=== PATIENT | female | born 1985 | race Caucasian/White ===

== ENCOUNTER 2017-09-04 08:00 | Outpatient (CLI) | payer OTHER | END 2017-09-04 08:01 | disposition home or self-care (01) | LOC: LAB.WCP 08:00 | PROVIDERS: ATTEND Family Medicine | DX: N39.0 Urinary tract infection, site not specified (principal) | CPT/HCPCS: 87086 ==

== ENCOUNTER 2020-05-02 16:17 | Outpatient (CLI) | payer BC ==
--- NOTE | 2020-05-02 18:59 | MRI Report ---
PROCEDURE: Shoulder RT W/O INDICATIONS: RT SHOULDER PAIN TECHNIQUE: Noncontrast oblique coronal T2 fast spin echo with fat saturation, oblique sagittal T1 spin echo and T2 fast spin echo with fat saturation, axial T1 spin echo and T2 fast spin echo with fat saturation t hrough the shoulder. COMPARISON: None. FINDINGS: Image quality: There is mild motion artifact. Rotator cuff: There is mild tendinopathy of the supraspinatus and infraspinatus with foci of magnetic susceptibility artifact distally compatible with calcific tendinitis. The subscapularis and teres mi nor appear intact. No rotator cuff muscle atrophy on sagittal images. Bones and bursae: No bone marrow contusions or fractures. There is moderate acromioclavicular joint degeneration. The acromion demonstrates conventional anatomy, without an os acromiale. A small amoun t of subacromial/subdeltoid bursal fluid is present. Capsule and soft tissues: In the absence of intra-articular contrast, the labrum and glenohumeral li gaments appear intact. The long head of the biceps tendon demonstrates normal location and morpholog y. The rotator interval appears normal, without fibrosis. The coracohumeral ligament is normal in t hickness. IMPRESSION: 1. Calcific tendinitis of the superior cuff distally with mild tendinopathy. No discrete rotator cuff tear. 2. Moderate acromioclavicular joint degeneration with mild subacromial/subdeltoid bursitis. Reviewed by: Juan Eid MD on 05/02/2020 5:58 PM [facility] Approved by: Juan Eid MD on 05/02/2020 5:58 PM [facility] Station ID: [id number]
== END 2020-05-02 16:18 | disposition home or self-care (01) ==
LOC: DI 16:17
PROVIDERS: ATTEND Physician Assistant
DX: M75.31 Calcific tendinitis of right shoulder (principal); M19.011 Primary osteoarthritis, right shoulder; M75.51 Bursitis of right shoulder

== ENCOUNTER 2020-07-12 07:26 | Outpatient (CLI) | payer BC ==
--- NOTE | 2020-07-12 12:27 | XRAY Report ---
PROCEDURE: Shoulder 3 View RT INDICATIONS: RIGHT SHOULDER PAIN TECHNIQUE: 4 views of the shoulder were acquired. COMPARISON: MR right shoulder 05/02/2020 FINDINGS: Bones: No fractures or dislocations. No suspicious bony lesions. Visualized ribs appear intact. Soft tissues: There are superior lateral joint space/bursal calcifications identified at the lateral right shoulder, amorphous in appearance, with etiology likely calcific bursitis by position and appea robinson. IMPRESSION: Moderate calcific bursitis lateral right shoulder region, no trauma found. Reviewed by: Blanco Stratton MD on 07/12/2020 12:25 PM PST Approved by: Blanco Stratton MD on 07/12/2020 12:25 PM PST Station ID: [id number]
== END 2020-07-12 23:59 | disposition home or self-care (01) ==
LOC: DI.N 07:26
PROVIDERS: ATTEND Physician Assistant
DX: M75.51 Bursitis of right shoulder (principal)

== ENCOUNTER 2020-12-26 14:59 | Outpatient (CLI) | payer BC ==
[2020-12-26 15:31] LABS: ALBUMIN 4.7 g/dL (3.2-5.5); ALBUMIN/GLOBULIN RATIO 1.5 (1.0-2.2); BILIRUBIN,TOTAL 0.5 mg/dL (0.2-1.0); CALCIUM 9.4 mg/dL (8.5-10.3); CREATININE 0.9 mg/dL (0.4-1.0); POTASSIUM 3.8 mmol/L (3.5-5.0); TOTAL PROTEIN 7.8 g/dL (6.7-8.2)
== END 2020-12-26 15:00 | disposition home or self-care (01) ==
LOC: LAB 14:59
PROVIDERS: ATTEND Orthopaedic Surgery
DX: M75.31 Calcific tendinitis of right shoulder (principal)
CPT/HCPCS: 36415; 80053

== ENCOUNTER 2020-12-28 15:04 | Outpatient (CLI) | payer BC | END 2020-12-28 15:05 | disposition home or self-care (01) | LOC: LAB 15:04 | PROVIDERS: ATTEND Orthopaedic Surgery | DX: Z01.812 Encounter for preprocedural laboratory examination (principal); Z20.822 Contact with and (suspected) exposure to COVID-19 ==

== ENCOUNTER 2021-01-02 10:17 | Day surgery (SDC) | payer BC ==
[~2021-01-02 10:17] MED LIST: ACETAMINOPHEN 1,000 MG/100 ML 100 ML IV ONE; CELECOXIB 100 MG CAPSULE PO ONE; EPINEPHrine 1 MG/ML AMP ONE; GABAPENTIN 400 MG CAPSULE ONE
[2021-01-02] MEDS ORDERED: LACTATED RINGERS 1,000 ML IV ONE ×2 (10:22→13:55)
[2021-01-02 10:42] LABS: HCG UR QUAL NEGATIVE
--- NOTE | 2021-01-02 10:55 | ANESTHESIA ---
Pre-Anesthesia VS, & Labs - Diagnosis right shoulder calcific tendonitis - Procedure right shoulder arthroscopy with debridement Vital Signs: Temp Pulse Resp BP Pulse Ox 36.2 C L 74 18 130/72 100 01/02/21 10:36 01/02/21 10:36 01/02/21 10:36 01/02/21 10:36 01/02/21 10:36 Height: 5 ft 5 in Weight (kg): 79 kg Body Mass Index: 29.0 BMI Classification: Overweight - NPO >8 hours - Is Patient ?: No - Lab Results Lab results reviewed: Yes Home Medications and Allergies Home Medications: Ambulatory Orders Acyclovir 400 mg PO BID PRN 12/31/20 Cetirizine [ZyrTEC] 10 mg PO DAILY 12/31/20 Fluticasone [Flonase] 1 sprays SHANEL BID PRN 12/31/20 Piroxicam [Feldene] 10 mg PO BID 12/31/20 Acyclovir 400 mg PO BID PRN 12/31/20 Cetirizine [ZyrTEC] 10 mg PO DAILY 12/31/20 Fluticasone [Flonase] 1 sprays SHANEL BID PRN 12/31/20 Piroxicam [Feldene] 10 mg PO BID 12/31/20 Allergies/Adverse Reactions: Allergies Allergy/AdvReac Type Severity Reaction Status Date / Time No Known Drug Allergies Allergy Verified 01/02/21 10:46 Anes History & Medical History - Anesthetic History Anesthesia Complications: reports: No previous complications Family history of Anesthesia Complications: Denies Family history of Malignant Hyperthermia: Denies - Medical History Cardiovascular: reports: None Pulmonary: reports: None Gastrointestinal: reports: None Urinary: reports: None Neuro: reports: None, Other (right hand numbness and tingling.) Musculoskeletal: reports: None Endocrine/Autoimmune: reports: None Skin: reports: None Psychosocial: reports: Anxiety, Alcohol, Cannabis History of Cancer?: No - Surgical History Gynecologic: reports: LEEP (Cervical surgery) Exam General: Alert, Oriented x3, Cooperative, No acute distress Dental: WNL Mouth Openin Fingerbreadth Neck Mobility: Normal Mallampati classification: II Respiratory: Lungs clear, Normal breath sounds, No respiratory distress, No accessory muscle use Cardiovascular: Regular rate, Normal S1, Normal S2, No murmurs Plan Anesthesia Type: General, Interscalene Block Consent for Procedure(s) Verified and Reviewed: Yes Code Status: Attempt Resuscitation ASA classification: 1-Healthy patient Is this case an emergency?: No
[2021-01-02] MEDS ORDERED: PROPOFOL 200 MG/20 ML VIAL IVP ONE (11:09)
[2021-01-02] MEDS ORDERED: DEXAMETHASONE 10 MG/ML VIAL ONE (11:09)
[2021-01-02] MEDS ORDERED: fentaNYL 100 MCG/2 ML VIAL ONE (11:09)
[2021-01-02] MEDS ORDERED: ONDANSETRON 4 MG/2 ML VIAL ONE (11:09)
[2021-01-02] MEDS ORDERED: MIDAZOLAM 2 MG/2 ML VIAL ONE (11:09)
[2021-01-02] MEDS ORDERED: LIDOCAINE-MPF 2% 5 ML VIAL ONE (11:09)
[2021-01-02] MEDS ORDERED: DEXAMETHASONE 4 MG/ML VIAL ONE (11:09)
[2021-01-02] MEDS ORDERED: ROPIVACAINE 0.5% PF 20 ML AMPULE ONE (11:09)
[2021-01-02] MEDS ORDERED: ROCURONIUM 50 MG/5 ML VIAL ONE (11:10)
[2021-01-02] MEDS ORDERED: EPINEPHrine 1 MG/ML AMP ONE (11:10)
[2021-01-02] MEDS ORDERED: DEXTROSE 50% ABBOJECT 25 GM/50 ML SYRINGE ONE (11:16)
[2021-01-02] MEDS ORDERED: SEVOFLURANE 250 ML LIQUID INH ONE (11:43)
[2021-01-02] MEDS ORDERED: NALOXONE 0.4 MG/ML VIAL IVP PRN (11:46)
[2021-01-02] MEDS ORDERED: HYDROmorphone 0.5 MG/0.5 ML SYRINGE IVP PRN (11:46)
[2021-01-02] MEDS ORDERED: METOCLOPRAMIDE 10 MG/2 ML VIAL IVP PRN (11:46)
[2021-01-02] MEDS ORDERED: MORPHINE 2 MG/ML CARPUJECT IVP PRN (11:46)
[2021-01-02] MEDS ORDERED: ATROPINE ABBOJECT 1 MG/10 ML SYRINGE IVP PRN (11:46)
[2021-01-02] MEDS ORDERED: ePHEDrine 50 MG/ML VIAL IVP PRN (11:46)
[2021-01-02] MEDS ORDERED: ONDANSETRON 4 MG/2 ML VIAL IVP PRN (11:46)
[2021-01-02] MEDS ORDERED: fentaNYL 100 MCG/2 ML VIAL IVP PRN (11:46)
[2021-01-02] MEDS ORDERED: oxyCODONE 5 MG TABLET PO PRN (11:58)
[2021-01-02] MEDS ORDERED: KETOROLAC 15 MG/ML VIAL IVP STA (11:58)
[2021-01-02] MEDS ORDERED: LACTATED RINGERS 1,000 ML IV SCH (12:00)
[2021-01-02] MEDS ORDERED: ePHEDrine 50 MG/ML VIAL IVP ONE (12:43)
[2021-01-02] MEDS ORDERED: EPINEPHrine 1 MG/ML AMP IR ONE (12:45)
[2021-01-02] MEDS ORDERED: SUGAMMADEX 200 MG/2 ML VIAL IVP ONE (13:34)
--- NOTE | 2021-01-02 13:48 | OPERATIVE REPORT ---
Operative Report - General Procedure Date: 01/02/21 Planned Procedure: Arthroscopy right shoulder, debridement of calcific deposit subacromial space Pre-Op Diagnosis: Chronic calcific tendinitis right shoulder Procedure Performed: Arthroscopy right shoulder, subacromial bursectomy and debridement of calcium deposit rotator cuff right shoulder Post Op Diagnosis: Same as preoperative diagnosis - Procedure Note Primary Surgeon: Johnson Ibarra MD Secondary Surgeon: Lokesh JESUS, Geoff JESUS Anesthesia Provider: Timothy Santos CRNA Anesthesia Technique: General ET tube, Regional block Estimated Blood Loss (mL): 2 Indications: This is a 35-year-old woman with chronic pain to her right shoulder, refractory to nonoperative treatment and has been present for many months. Her exam showed localized tenderness to the subacromial region with painful arc of motion, good strength. Her x-ray showed a large calcium deposit near the greater tuberosity in the subacromial space right shoulder. There is no sign of rotator cuff tear clinically. Findings: The glenohumeral joint and adjacent structures all appeared normal. She had intact rotator cuff. There was no articular cartilage damage to the glenoid or humeral head. The labrum was completely intact circumferentiallyThe glenohumeral joint and adjacent structures all appeared normal. She had intact rotator cuff. There was no articular cartilage damage to the glenoid or humeral head. The labrum was completely intact circumferentially. The biceps tendon was normal as well as subscapularis supraspinatus, infraspinatus and teres minor. She had a normal rotator cuff footprint.. The biceps tendon was normal as well as subscapularis supraspinatus, infraspinatus and teres minor. She had a normal rotator cuff footprint. The subacromial space showed a thickened subacromial bursa and a calcium deposit was liberated from the supraspinatus. Complications: None - Other Other Information/Narrative: The patient was brought to the operating room. She is given a right shoulder block and a general endotracheal anesthesia before being positioned in the beachchair position. A beachchair positioner was utilized and face mask to prevent pressure to any facial structures. The neck was placed in a neutral position. The right shoulder and right upper extremity were prepped and draped in a sterile manner in the usual fashion. A timeout procedure was performed by the entire operating room team and all were in agreement. The bony landmarks of the right shoulder were outlined with a sterile marking pen. A posterior glenohumeral portal was established. The joint was entered with a blunt trocar. The Gateway 3D arthroscope, diagnostic 40 degree of black with Gateway 3D video camera was introduced and complete glenohumeral arthroscopy was performed with the findings noted above. An anterior portal was established for egress in the safe triangle under direct visualization. The arthroscope was then introduced into the subacromial space, again using a posterior portal. A lateral subacromial portal was established. A subacromial bursectomy was performed with a combination of the [place] Arthrex radiofrequency probe and shaver. The Arthrex arthroscopic pump was utilized and inflow was brought through the arthroscope. The calcium deposit was identified and begin bubbling out of the rotator cuff with pressure in the area of the supraspinatus insertion and just medial. A spinal needle was used to liberate additional calcium deposits by penetrating the calcium deposit numerous times. A shaver was used to trim any frayed edges of the tendon and to evacuate calcium debris. The incision sites were closed with 3-0 nylon, dry sterile dressing and sling. She tolerated the procedure very well. Physician child center assistant was utilized to help with positioning, limb alignment and positioning as well as helping with instrumentation, wound closure, dressing and sling.
--- NOTE | 2021-01-02 14:29 | ANESTHESIA POST OP EVALUATION ---
Anesthesia Post Eval - Post Anesthesia Eval Vitals: Last Vital Signs Temp 36.5 C 01/02/21 14:15 Pulse 94 01/02/21 14:15 Resp 14 01/02/21 14:15 BP 132/78 H 01/02/21 14:15 Pulse Ox 100 01/02/21 14:15 CV Function Including HR & BP: Stable Pain Control: Satisfactory Nausea & Vomiting: Negative Mental Status: Baseline Respiratory Status: Airway Patent Hydration Status: Satisfactory Anesthesia Complications: None
[2021-01-02 15:00] VITALS: BP 118/70
== END 2021-01-02 10:18 | disposition home or self-care (01) ==
LOC: SDS 10:17
PROVIDERS: ATTEND Orthopaedic Surgery
DX: M75.31 Calcific tendinitis of right shoulder (principal); E66.3 Overweight; Z68.29 Body mass index [BMI] 29.0-29.9, adult
CPT/HCPCS: 29822; 81025; A9270; C1713; J0131; J3490; J7120

== ENCOUNTER 2021-09-12 08:00 | Outpatient (CLI) | payer BC, OTHER ==
--- NOTE | 2021-09-12 11:53 | XRAY Report ---
PROCEDURE: Elbow 3 View LT INDICATIONS: CONTUSION OF LEFT ELBOW TECHNIQUE: 3 views of the elbow were acquired. COMPARISON: None. FINDINGS: Suboptimal positioning. BONES/JOINT: No acute, displaced fracture or dislocation. No appreciable joint effusion. Calcificatio n adjacent to the lateral epicondyle, likely reflecting enthesopathy or calcific tendinopathy. SOFT TISSUES: No focal abnormality. IMPRESSION: 1.No acute osseous abnormality. Reviewed by: Jayson Anderson MD on 09/12/2021 11:51 AM [facility] Approved by: Jayson Anderson MD on 09/12/2021 11:51 AM [facility] Station ID: [id number]
== END 2021-09-12 23:59 ==
LOC: DI.N 08:00
PROVIDERS: ATTEND Physician Assistant
DX: S50.02XA Contusion of left elbow, initial encounter (principal)